=== PATIENT | female | born 1980 | race Caucasian/White ===

== ENCOUNTER → 2024-07-11 13:29 | Outpatient (REF) | payer BC, SELFPAY | LOC: WDC 13:29 | PROVIDERS: ATTENDING PHYSICIAN Physician Assistant Medical | DX: Z12.31 Encounter for screening mammogram for malignant neoplasm of breast (principal) | CPT/HCPCS: 77063; 77067 ==

== ENCOUNTER → 2024-07-23 11:04 | Outpatient (REF) | payer BC, SELFPAY | LOC: WDC 11:04 | PROVIDERS: ATTENDING PHYSICIAN Physician Assistant Medical | DX: R92.2 Inconclusive mammogram (principal); R92.30 Dense breasts, unspecified | CPT/HCPCS: 76641 ==